=== PATIENT | male | born 1965 | race Caucasian/White ===

== ENCOUNTER 2017-10-24 08:22 | Observation (INO) | payer OTHER ==
[2017-10-24] MEDS ORDERED: Ondansetron INJ* 2 MG/ML VIAL IV ONE (08:45)
[2017-10-24] MEDS ORDERED: NS 0.9% 1000 ML* 3,000 ML IV ONE (08:45)
--- NOTE | 2017-10-24 09:10 | ED ---
Nausea/Vomiting/Diarrhea HPI - HPI Summary HPI Summary: Patient presents to the ED with CC of diarrhea x 2 days. Hx of 2x C. Diff to which he recently was taking vancomycin. Last dose 2 weeks ago. Denies any symptoms since that time until 2 days ago. Associated N/V and feelings of weakness. Denies AUGUST, neck stiffness. He notes to some itching to his chest which he has never had before. Diarrhea is loose, yellow/orange in color, and frequency of 20x per day. He has been eating and drinking, but feels nothing is getting absorbed. Denies chest pain or SOB. Takes medications for CAD, HTN. Family at bedside. BM improves the symptoms. Nothing makes the symptoms worse. He notes to insomnia x 2 nights d/t frequency of episodes. - History of Current Complaint Chief Complaint: EDNauseaVomitDiarrh Stated Complaint: V,N,D Time Seen by Provider: 10/24/17 08:35 Hx Obtained From: Patient Onset/Duration: Sudden Onset Timing: Constant Severity Initially: Severe Severity Currently: Severe Pain Intensity: 5 Pain Scale Used: 0-10 Numeric Character: Cramping Aggravating Factor(s): Nothing Alleviating Factor(s): Bowel Movement Nausea/Vomiting Presence: Nauseated, Vomiting Vomiting Frequency: Every 3-4 hours Nausea/Vomiting Duration: 12-24 hours Diarrhea Presence: Yes Diarrhea Frequency: Every 15-60 minutes Diarrhea Duration: 24-36 hours Diarrhea Characteristics: Watery, Malodorous, Other - yellow and orange in color - Risk Factors Influenza Risk Factors: Negative Surgical Obstruction Risk Factor(s): Negative - Allergies/Home Medications Allergies/Adverse Reactions: Allergies Allergy/AdvReac Type Severity Reaction Status Date / Time Cephalexin [From Keflex] Allergy See Comment Verified 10/24/17 08:30 Penicillins Allergy Unknown Verified 10/24/17 08:30 Reaction Details Home Medications: Home Medications Albuterol inh POWDER (NF) [Proair Respiclick] 90 mcg INH Q6H PRN 10/24/17 [ History Confirmed 10/24/17] Atorvastatin* [Lipitor*] 80 mg PO QPM 10/24/17 [History Confirmed 10/24/17] Bd Ultra-Fine Micro Pen N 32G X 6 mm 10/24/17 [History] Bupropion HCl [Forfivo Xl] 450 mg PO DAILY 10/24/17 [History Confirmed 10/24/17] Colestipol (NF) 1 gm PO BID 10/24/17 [History Confirmed 10/24/17] Gabapentin CAP(*) [Neurontin 300 CAP(*)] 300 mg PO DAILY 10/24/17 [History Confirmed 10/24/17] Glucagon* [Glucagen*] 1 mg INJ SEE INSTRUCTIONS 10/24/17 [History Confirmed ] Lorazepam [Ativan 1 MG TAB] 1 mg PO BID 10/24/17 [History Confirmed 10/24/17] Metformin HCl [Glucophage] 1,000 mg PO BID 10/24/17 [History Confirmed 10/24/17] Metoprolol Succinate [Toprol Xl] 50 mg PO BID 10/24/17 [History Confirmed ] Omeprazole [Prilosec] 20 mg PO DAILY 10/24/17 [History Confirmed 10/24/17] oxyCODONE TAB* [Roxycodone TAB 5 mg*] 5 mg PO Q4H PRN 10/24/17 [History Confirmed 10/24/17] PMH/Surg Hx/FS Hx/Imm Hx Previously Healthy: Yes - Immunization History Hx Pertussis Vaccination: No Immunizations Up to Date: Unable to Obtain/Confirm Infectious Disease History: Yes Infectious Disease History: Denies: Traveled Outside the [place] in Last 30 Days - Social History Occupation: Employed Full-time Lives: With Family Alcohol Use: Occasionally Alcohol Amount: approx 5 drinks a week Hx Substance Use: No Substance Use Type: Reports: None Hx Tobacco Use: No Smoking Status (MU): Never Smoked Tobacco Review of Systems Positive: Fatigue. Negative: Fever, Chills, Skin Diaphoresis Eyes: Negative Cardiovascular: Negative Respiratory: Negative Positive: Abdominal Pain, Vomiting, Diarrhea, Nausea Genitourinary: Negative Positive: no symptoms reported, see HPI Musculoskeletal: Negative Skin: Negative Neurological: Negative All Other Systems Reviewed And Are Negative: Yes Physical Exam Triage Information Reviewed: Yes Vital Signs On Initial Exam: Initial Vitals Temp Pulse Resp BP Pulse Ox 98.2 F 90 13 136/85 92 10/24/17 08:27 10/24/17 08:27 10/24/17 08:27 10/24/17 08:27 10/24/17 08:27 Vital Signs Reviewed: Yes Appearance: Positive: Ill-Appearing Skin: Positive: Dry, Pale Head/Face: Positive: Normal Head/Face Inspection Eyes: Positive: EOMI, KASEY, Conjunctiva Clear Neck: Positive: Supple, No Lymphadenopathy Respiratory/Lung Sounds: Positive: Clear to Auscultation, Breath Sounds Present Cardiovascular: Positive: RRR, Pulses are Symmetrical in both Upper and Lower Extremities Abdomen Description: Positive: Nontender, Soft Bowel Sounds: Positive: Hyperactive Musculoskeletal: Positive: Normal, Strength/ROM Intact Neurological: Positive: Speech Normal Psychiatric: Positive: Normal, Affect/Mood Appropriate - [place] Coma Scale Coma Scale Total: 15 Diagnostics - Vital Signs Vital Signs Temp Pulse Resp BP Pulse Ox 10/24/17 08:27 98.2 F 90 13 136/85 92 - Laboratory Result Diagrams: 10/24/17 09:10 10/24/17 09:10 Lab Statement: Any lab studies that have been ordered have been reviewed, and results considered in the medical decision making process. Naus/Vom/Diarrhea Course/Dx - Course Course Of Treatment: During the course of treatment, patient was given fluids and zofran. C. diff and stool culture obtained and sent. Improved following IV fluids and zofran. Continues to appear pale and feels weak on physical exam. H and H low at 9 and 26. Platelet 143.. C. Diff positive. Hospitalist called who agrees to admit patient. Requested records from [facility] in [place], [place] and [facility] in [place], [place]. Awaiting records. Patient is admitted. He is OK with plan. - Differential Dx/Diagnosis Provider Diagnoses: C. Diff Is Visit Related: No - Physician Notification/Consults Time Discussed With Above Provider: 10:30 Instructed by Provider To: Admit As Inpatient Discharge - Discharge Plan Condition: Stable Disposition: ADMITTED TO [facility]
[2017-10-24 09:26] LABS: Hematocrit 26 % (42-52); Mean Corpuscular HGB Conc 34 g/dl (31-36); Mean Corpuscular Hemoglobin 31 pg (27-31); Mean Corpuscular Volume 90 fL (80-94); Mean Platelet Volume 8 um3 (7.4-10.4); Red Blood Count 2.94 10^6/ul (4.0-5.4); Red Cell Distribution Width 14 % (10.5-15); White Blood Count 10.2 10^3/ul (3.5-10.8)
[2017-10-24 09:40] LABS: Albumin 3.1 g/dL (3.2-5.2); C Reactive Protein 10.89 mg/L (< 5.00); Calcium 8.9 mg/dL (8.6-10.3); EGFR African American 54.4 (>60); EGFR Non-African American 42.3 (>60); Globulin 3.4 g/dL (2-4); Magnesium 1.6 mg/dL (1.9-2.7); Potassium 4.5 mmol/L (3.5-5.0); Total Bilirubin 0.6 mg/dL (0.2-1.0); Total Protein 6.5 g/dL (6.4-8.9)
[2017-10-24] MEDS ORDERED: Albuterol HFA INHALER* 8 gm MDI INH PRN (12:26)
[2017-10-24] MEDS ORDERED: Dextrose 50% Syringe 50 ML* 25 GM/50 ML SYRINGE IV PUSH PRN (12:28)
[2017-10-24] MEDS ORDERED: Ondansetron INJ* 2 MG/ML VIAL IV PRN (12:32)
[2017-10-24] MEDS ORDERED: Acetaminophen TAB* 325 MG PO PRN (12:32)
[2017-10-24] MEDS ORDERED: NS 0.9% 1000 ML* 1,000 ML IV SCH (12:45)
[2017-10-24] MEDS: Vancomycin CAP* 125 MG CAP PO SCH ×3 (15:36→21:20)
[2017-10-24] MEDS: Heparin VIAL(*) 5000 UNITS/ML VIAL (FIVE THOUSAND) SUBCUT SCH ×2 (15:50→22:21)
[2017-10-24] MEDS: oxyCODONE TAB* 5 MG TAB PO PRN ×2 (16:43→21:00)
[2017-10-24] MEDS: Insulin REGULAR(*) 1 UNITS UNIT SUBCUT SCH (17:36)
[2017-10-24] MEDS: Insulin LISPRO* 1 UNITS UNIT SUBCUT SCH (17:37)
[2017-10-24] MEDS ORDERED: Atorvastatin* 80 MG TAB PO SCH (18:00)
[2017-10-24 18:44] LABS: Urine Bacteria Absent (Absent); Urine Bilirubin Negative (Negative); Urine Glucose Negative (Negative); Urine Nitrite Negative (Negative)
--- NOTE | 2017-10-24 20:27 | HP ---
HOSPITAL MEDICINE HISTORY AND PHYSICAL: DATE OF ADMISSION: 10/24/17 PRIMARY CARE PHYSICIAN: None. ATTENDING PHYSICIAN: Galilea Freeman MD * (dictation provided by Rashmi Miller NP ) CHIEF COMPLAINT: Nausea, vomiting, diarrhea. HISTORY OF PRESENT ILLNESS: Mr. English is a 52-year-old male who is visiting out of town from the [place] area and presents today to the hospital with nausea, vomiting, diarrhea. Mr. English has a history of insulin dependent diabetes. He is wheelchair bound secondary to bilateral Charcot foot. He has diastolic congestive heart failure and he has had 2 episodes of Clostridium difficile colitis requiring hospitalization recently with last episode being about 3-4 weeks ago. He confirms being treated with flagyl and vancomycin during his last hospitalization. He has been visiting with family in [place] and was feeling relatively well the past few days. He notes that at night he has felt like he was coming down with a cold over the past couple of days, but then he would feel fine during the day. Last night at about 10:30 or 11 o'clock , he had sudden onset of nausea, vomiting, diarrhea. He was up throughout the night with his family who were helping him to the bathroom. He was up at least 7 to 10 times during the night. He had profuse liquid diarrhea, with nausea and vomiting and lower abdominal pain. There was no report of blood in the stool. He has had no fever. This episode is very similar to the previous episodes of C. Diff. In the emergency room, Mr. English had labs which showed no leukocytosis. He had anemia, which is slightly worse than his baseline, which was 10 and is now 9. He has acute kidney injury with BUN of 43 and creatinine of 1.72. This is a little bit up from his baseline with the creatinine normally running about 1.2 to 1.5. He has an essentially normal CRP at 10.89. His vitals are stable. PAST MEDICAL HISTORY: 1. C. Difficile x2, last episode about 3 to 4 weeks ago. 2. Insulin dependent diabetes. 3. Polyneuropathy. 4. Charcot foot, left and right. 5. Diastolic congestive heart failure, on chronic torsemide therapy. 6. Depression. 7. Anxiety. 8. Obstructive sleep apnea with CPAP. MEDICATIONS: 1. Atorvastatin 80 mg p.o. daily or q.p.m. 2. Bupropion XL 450 mg p.o. daily. 3. Colestipol. 4. Gabapentin 300 mg every day. 5. Humulin R 500 units per 1 mL, the patient has been currently taking 40 units in the morning and 40 units in the afternoon. This is a decrease from prior to this visit to [place], where he was taking 40 a.m., 40 at lunch, and 50 p.m. With this, his blood sugar has been running about 220. 6. Lorazepam 1 mg twice daily. 7. Metformin 1000 mg p.o. b.i.d. 8. Metoprolol 50 mg b.i.d. 9. Omeprazole 20 mg p.o. daily. 10. Oxycodone 5 mg q.4 hours p.r.n. 11. Acetaminophen as needed. 12. Torsemide 40 mg daily. 13. Trulicity subcutaneously weekly. 14. Tylenol p.r.n. 15. Aspirin 81 mg p.o. daily. 16. Sarna Lotion as needed for itching. 17. Senna 1 tab by mouth as needed for constipation. 18. Vitamin D3, 1 tab by mouth daily. 19. Enemas as needed p.r.n. ALLERGIES: To CEPHALEXIN and PENICILLIN. FAMILY HISTORY: The patient reports that multiple members of his family have diabetes. SOCIAL HISTORY: The patient has never been a smoker. He drinks about 4 alcoholic beverages per week. He denies any drug use. He states his brother, Dontrell, will be the healthcare proxy. REVIEW OF SYSTEMS: Constitutional: No fevers, no chills, no intended weight loss. Cardiac: No chest pain. Positive for lower extremity edema. Respiratory : No cough, no hemoptysis. No shortness of breath. GI: Positive nausea, vomiting, diarrhea, or abdominal pain. : No gross hematuria or dysuria. Neuro: No focal weakness or sensory loss. Eyes: No visual complaints. ENT: No dysphagia. Musculoskeletal: No arthralgias or myalgias. Skin: Positive for an abrasion on his left hip and some chronic dried ulcerations to his lower extremities. Psych: Positive for depression and anxiety. PHYSICAL EXAMINATION GENERAL: Mr. English is sitting up in the bed, he is in no acute distress. VITAL SIGNS: Temperature 98.2, pulse rate 93, respiratory rate 26, O2 saturation 98% on room air, blood pressure 142/103. LUNGS: Clear to auscultation bilaterally with no accessory muscle use and good aeration. HEART: S1, S2. No murmurs, rubs, or gallop and regular. ABDOMEN: Soft and nontender with bowel sounds positive x4. It is nontender. EXTREMITIES: No cyanosis. Positive for chronic 1+ lower extremity edema. NEUROLOGIC: He is alert. He is oriented x3. He moves all extremities equally. There is no facial asymmetry or focal weakness. Extraocular movements are intact. SKIN: The patient has multiple dried scabbed areas to bilateral lower extremities. There is chronic venous stasis changes. He has superficial abrasions to his left hip and he has what appears to be a chronic healing pressure ulcer to his left buttock. LABORATORY DATA: Sodium 135, potassium 4.5, chloride 102, serum bicarbonate 26 , BUN 43, creatinine 1.72, glucose 230, lactic acid 1.5, magnesium 1.6. CRP 10.89. WBC 10.2, hemoglobin 9.0, hematocrit 26, platelet count 143,000. ASSESSMENT/PLAN: Mr. English is a 52-year-old male visiting from out of town with a past medical history of Clostridium difficile x2, insulin dependent diabetes, he is wheelchair bound due to neuropathy and Charcot's foot on left and right, as well as diastolic congestive heart failure, who presents today to the hospital with concern for nausea, vomiting, diarrhea, which started last evening. Our plans are for observation in the hospital for the followin. Nausea, vomiting, diarrhea. The patient's Clostridium difficile is positive. Given the severity of the symptoms and the 2 recent Clostridium difficile infections, I am concerned that this is an active Clostridium difficile infection. Plan to treat with pulsed vancomycin per guidelines. The patient will have a consultation with Dr. Arnold from Infectious Diseases tomorrow if he is available. At this point, he does not appear to have severe disease. He is pain free at the moment. He has no leukocytosis or fever. He meets criteria for sepsis with a slightly elevated respiratory rate and heart rate. He has received IV fluids in the emergency room. His lactic acid is 1.5. Blood cultures have been received. 2. Acute kidney injury. The patient's BUN and creatinine are elevated from baseline. His creatinine per records runs about 1.2 to 1.5 normally. I think this is secondary to dehydration in the setting of chronic kidney disease and torsemide use. Plan to hydrate with 75 mL of fluid overnight per hour and then we will recheck his labs tomorrow. Plan to hold torsemide. 3. Anemia. The patient's hemoglobin is 9. His normal hemoglobin over the past year or so is running about 10 to 11. The stool guaiac was negative. I have no evidence of overt bleeding. I believe this is all be secondary to his chronic kidney disease. Plan to recheck his labs in the a.m. 4. Type 2 diabetes. Plan to continue reduced dose home insulin with regular insulin at 20 units subcutaneously b.i.d. He will also have lispro sliding scale. 5. DVT prophylaxis with heparin subcu. 6. Code status is full code. TIME SPENT: Approximately 60 minutes were spent on the admission of this patient and more than half of the time was spent with the patient at the bedside reviewing the events leading up to this hospitalization, performing the physical examination and reviewing my plan of care. RASHMI MILLER NP [id number]/[facility] #: [id number] HALEY
[2017-10-24] MEDS: LORazepam TAB(*) 1 MG PO SCH (20:59)
[2017-10-24] MEDS: Lactobacillus Acidophilu (GG)* 1 CAP CAP PO SCH (21:00)
[2017-10-24] MEDS ORDERED: Metoprolol Succinate XL TAB* 50 MG PO SCH (21:00)
[2017-10-25] MEDS: oxyCODONE TAB* 5 MG TAB PO PRN ×3 (02:17→12:14)
[2017-10-25] MEDS: Heparin VIAL(*) 5000 UNITS/ML VIAL (FIVE THOUSAND) SUBCUT SCH ×2 (06:31→13:11)
[2017-10-25 07:29] LABS: Hematocrit 25 % (42-52); Hemoglobin 8.5 g/dl (14.0-18.0); Mean Corpuscular HGB Conc 34 g/dl (31-36); Mean Corpuscular Hemoglobin 31 pg (27-31); Mean Corpuscular Volume 90 fL (80-94); Mean Platelet Volume 8 um3 (7.4-10.4); Red Blood Count 2.76 10^6/ul (4.0-5.4); Red Cell Distribution Width 14 % (10.5-15); White Blood Count 5.7 10^3/ul (3.5-10.8)
[2017-10-25 07:44] LABS: BUN/Creatinine Ratio 24.6 (8-20); Calcium 8.6 mg/dL (8.6-10.3); EGFR African American 75.1 (>60); EGFR Non-African American 58.4 (>60); Potassium 3.8 mmol/L (3.5-5.0)
[2017-10-25 08:21] VITALS: BP 132/66
[2017-10-25] MEDS: Lactobacillus Acidophilu (GG)* 1 CAP CAP PO SCH (08:22)
[2017-10-25] MEDS: Vancomycin CAP* 125 MG CAP PO SCH ×2 (08:23→13:10)
[2017-10-25] MEDS: LORazepam TAB(*) 1 MG PO SCH (08:23)
[2017-10-25] MEDS: Insulin LISPRO* 1 UNITS UNIT SUBCUT SCH ×2 (08:24→12:31)
[2017-10-25] MEDS: Insulin REGULAR(*) 1 UNITS UNIT SUBCUT SCH (08:24)
[2017-10-25] MEDS ORDERED: Metoprolol Succinate XL TAB* 50 MG PO SCH (09:00)
[2017-10-25] MEDS ORDERED: Omeprazole CAP* 20 MG PO SCH (09:00)
[2017-10-25] MEDS ORDERED: BuPROPion XL* 150 MG TAB.XL PO SCH (09:00)
[2017-10-25] MEDS ORDERED: Gabapentin CAP(*) 300 MG PO SCH (09:00)
--- NOTE | 2017-10-25 11:17 | DCNOTE ---
Subjective Date of Service: 10/25/17 Interval History: Patient seen and examined at bedside. Patient reports that diarrhea and abdominal pain has resolved. Tolerating PO with out difficulty. Family History: Unchanged from Admission Social History: Unchanged from Admission Past Medical History: Unchanged from Admission Objective Active Medications: Acetaminophen (Tylenol Tab*) 650 mg PO Q6H PRN Albuterol (Ventolin Hfa Inhaler*) 1 puff INH Q6H PRN Atorvastatin Calcium (Lipitor*) 80 mg PO QPM SYLVIE Bupropion HCl (Wellbutrin Xl *) 450 mg PO DAILY [facility] Dextrose (D50w Syringe 50 Ml*) 12.5 gm IV PUSH .FOR FS < 60 - SS PRN Gabapentin (Neurontin Cap(*)) 300 mg PO DAILY [facility] Heparin Sodium (Porcine) (Heparin Vial(*)) 5,000 units SUBCUT Q8HR [facility] Sodium Chloride (Ns 0.9% 1000 Ml*) 1,000 mls @ 75 mls/hr IV PER RATE [facility] Insulin Human Lispro (Humalog*) 0 units SUBCUT AC [facility] Insulin Human Regular (Insulin Regular(*)) 20 units SUBCUT 0800,1700 SYLVIE Lactobacillus Rhamnosus (Culturelle*) 1 cap PO BID SYLVIE Lorazepam (Ativan Tab(*)) 1 mg PO BID SYLVIE Metoprolol Succinate (Toprol Xl Tab*) 50 mg PO DAILY SYLVIE Ondansetron HCl (Zofran Inj*) 4 mg IV Q6H PRN Oxycodone HCl (Roxycodone Tab*) 5 mg PO Q4H PRN Vancomycin HCl (Vancomycin Cap*) 125 mg PO QID [facility] Vital Signs Temp Pulse Resp BP Pulse Ox 97.8 F 97 18 132/66 98 10/25/17 08:20 10/25/17 08:20 10/25/17 08:32 10/25/17 08:20 10/25/17 08:20 Oxygen Devices in Use Now: None Appearance: sitting up in bed, NAD Eyes: No Scleral Icterus Ears/Nose/Mouth/Throat: NL Teeth, Lips, Gums Neck: NL Appearance and Movements; NL JVP, Trachea Midline Respiratory: Symmetrical Chest Expansion and Respiratory Effort, Clear to Auscultation Cardiovascular: NL Sounds; No Murmurs; No JVD, RRR Abdominal: NL Sounds; No Tenderness; No Distention Extremities: No Edema Skin: No Rash or Ulcers Neurological: Alert and Oriented x 3, NL Muscle Strength and Tone Lines/Tubes/Other Access: Clean, Dry and Intact Peripheral IV Nutrition: Taking PO's Result Diagrams: 10/25/17 07:13 10/25/17 07:13 Microbiology and Other Data: . Assess/Plan/Problems-Billing Pt is a 52 y/o M w/ PMH significant for recurrent cdiff, insulin dependent diabetes, wheelchair bound secondary to neuropathy and charcot's foot who is visiting from out of town and presented with diarrhea, nausea, and vomiting found to have recurrent Cdiff. - Patient Problems (1) Clostridium difficile colitis (2) Diabetes (3) CKD (chronic kidney disease) stage 2, GFR 60-89 ml/min (4) Anemia (5) DVT prophylaxis (6) Full code status Status and Disposition: OBV for Cdiff. Plan to discharge home once vancomycin prescription received from [facility] pharmacy. See dictated discharge summary for detail.
--- NOTE | 2017-10-25 21:13 | CONS ---
CONSULTATION REPORT: DATE OF CONSULT: 10/25/17 REQUESTING PROVIDER: Rashmi Miller NP CONSULTING SERVICE: Infectious Disease. REASON FOR CONSULT: Recurrent C. difficile diarrhea. IMPRESSION: 1. Clostridium difficile associated diarrhea, third episode, last treatment with vancomycin for 2 weeks. His diarrhea is improving. 2. Thrombocytopenia due to sepsis, due to Clostridium difficile diarrhea, which was present on admission. 3. Morbid obesity. 4. Diabetes with neuropathy. RECOMMENDATION: Agree with vancomycin 125 mg 4 times a day for 14 days, then 3 times a day for 10 days, then 2 times a day for 10 days, then 1 time a day for 10 days, then every other day for 10 doses, and every third day for 10 doses. He and I discussed that about 95% of the people with recurrent C. diff will be cured by this regimen and at that point, if he has recurrence after finishing, his main option would be a fecal microbiota transplant. He will talk to his infectious disease doctor in [place] about followup for C. diff and consideration of transplant if he is not cured by this regimen. We will stop his omeprazole which may increase the risk of recurrence of C. difficile diarrhea. HISTORY OF PRESENT ILLNESS: This is a 52-year-old man with diabetes and diarrhea with recent C. diff. In July, he had oral antibiotics for diabetic foot infection and a couple of weeks later, had explosive multiple stools a day, liquid stools, admitted to hospital near [place], treated for C. difficile diarrhea after PCR came back positive. He had a course of antibiotics a few days later. After stopping, he had recurrence of his symptoms , treated with Flagyl and vancomycin, he thinks. He had about 2 weeks of that therapy. Near the end, his stools were getting back to normal and then the course of treatment stopped. About 2 weeks later, which was Wednesday, he had return of explosives multiple stools a day with nausea, vomiting, mild abdominal pain, chills, and sweats with fever. Because of those symptoms, he came to the emergency room yesterday, 10/24/17. He had white count of 10,000 and C. diff PCR was positive. He was started on oral vancomycin. Blood cultures were sent, they are negative. At this point, his stool cultures are also pending. He had abdominal pain which today is much improved. He has vague occasional mild discomfort. He is passing gas. His last bowel movement overnight was soft. His chills, sweats, and fevers resolved. Today, he is eating and drinking. PAST MEDICAL HISTORY: 1. Diabetes with neuropathy. 2. Bilateral Charcot joints in the ankle and midfoot. 3. History of C. difficile diarrhea. 4. Diastolic congestive heart failure. 5. Depression. 6. Anxiety. 7. Obstructive sleep apnea, on CPAP. 8. Obesity. MEDICATIONS: 1. Tylenol. 2. Albuterol. 3. Lipitor. 4. Bupropion. 5. Heparin subcutaneous injection. 6. Gabapentin. 7. Insulin regular subcutaneous injection. 8. Lactobacillus. 9. Omeprazole. 10. Oxycodone. 11. Metoprolol. ALLERGIES: CEPHALEXIN and PENICILLIN. FAMILY HISTORY: No recurrent infections. SOCIAL HISTORY: He lives in [place]. He is here visiting relatives. No other travel. REVIEW OF SYSTEMS: A 14-point review of systems was negative except as noted above. PHYSICAL EXAM: Vital Signs: Temperature 36.6, heart rate 97, respiratory 16, blood pressure 130/60, O2 sat 98% on room air. General: He is awake, not in distress. HEENT: There is no conjunctival hemorrhage. Oropharynx is without lesions. Neck: Supple. Lymph Nodes: No inguinal, axillary, or epitrochlear lymphadenopathy. Heart: Regular rate and rhythm without murmurs, rubs, or gallops. Lungs: Clear to auscultation bilaterally. Abdomen: Soft, nontender , nondistended. Bowel sounds present. Skin: There are no rashes or splinter hemorrhages. Musculoskeletal: There is diffuse bilateral edema and venous stasis changes of his feet when examined. LABORATORY DATA: White blood cell count 5, hemoglobin 8, platelets 120. Creatinine 1.3. HIV antibody negative. Urinalysis 2+ blood. Please see impressions and recommendations as outlined above, which I have discussed with Serena Luu NP. Thanks for asking me to see Mr. English in consultation. [id number]/[facility] #: [id number] [place]
--- NOTE | 2017-10-26 04:52 | DS ---
DISCHARGE SUMMARY: DATE OF ADMISSION: 10/24/17 DATE OF DISCHARGE: 10/25/17 PRIMARY CARE PHYSICIAN: Out of the area. ATTENDING PHYSICIAN: Dr. Mehnaz Castro * (report dictated by Marah Luu NP). PRIMARY DIAGNOSIS: Clostridium difficile colitis. SECONDARY DIAGNOSES: 1. Insulin-dependent diabetes. 2. Polyneuropathy, Charcot foot. 3. Diastolic congestive heart failure. 4. Depression. 5. Anxiety. 6. Obstructive sleep apnea. STUDIES WHILE IN THE HOSPITAL: No studies while in the hospital. MEDICATIONS AT THE TIME OF DISCHARGE: New medication: 1. Vancomycin 125 mg oral tablets to take as follows: 4 times daily for 14 days, 3 times daily for 10 days, 2 times daily for 10 days, 1 time daily for 10 days, every other day x10 doses, and then every 3 days for 10 doses. New medication: 1. Lactobacillus 1 capsule oral twice daily. The following medications are all medications the patient came in on: 1. Insulin U-500 40 units 8 a.m. and 1700. 2. Oxycodone 5 mg oral 4 hours as needed. 3. Toprol-XL 50 mg oral twice daily. 4. Glucophage 2000 mg oral twice daily. 5. Ativan 1 mg oral twice daily. 6. Glucagon 1 mg injection per instructions. 7. Neurontin 300 mg oral daily. 8. Colestipol 1 g oral twice daily. 9. Bupropion 450 mg oral daily. 10. Lipitor 80 mg oral in the evening. 11. ProAir RespiClick 90 mcg inhaled every 6 hours as needed. 12. Vitamin D3 1000 units oral daily. 13. Aspirin 81 mg oral daily. 14. Senna 8.6 mg oral every day as needed. 15. Tylenol 650 mg oral every 6 hours as needed. 16. Trulicity 0.5 mL subcu weekly. 17. Torsemide 40 mg oral daily. HISTORY OF PRESENT ILLNESS AND HOSPITAL COURSE: Mr. English is a 62-year-old male visiting [place] from out of town, who presented to the emergency room on with complaint of nausea, vomiting, and diarrhea. The patient has a history of diabetes and recurrent C. diff with the most recent episode approximately 3 to 4 weeks ago. The patient presented to the emergency room with the complaint of abdominal pain as well as diarrhea. In the emergency room , the diarrhea was sent and it was positive for C. difficile. The patient was placed on oral vancomycin and the patient was admitted to the medical floor and placed on fluids. The patient was seen in consultation the next morning by Dr. Fam Arnold from Infectious Disease. Dr. Arnold recommended 6 weeks of vancomycin with the taper that is outlined above. Overnight, the patient's abdominal pain and nausea improved and the patient was able to tolerate a regular diet without difficulty. At this point, he was stable from a colitis standpoint to be discharged. The patient's BUN and creatinine were slightly elevated upon admission; with IV fluids, creatinine stabilized and came down to 1.3. The patient has chronic anemia likely from chronic kidney disease. Hemoglobin remained stable at 8.5. The patient's stool was negative for blood. Because of the patient's acute kidney injury, torsemide was held and will be restarted upon discharge. For the patient's type 2 diabetes, home insulin was reduced to 20 units subcu twice daily, sugars were relatively controlled upon discharge. The patient will resume his U-500 40 units twice daily. PHYSICAL EXAMINATION: On 10/25/17, vitals were as follows: Temperature 97.8, heart rate 97, respiratory rate is 16, blood pressure 132/66, oxygen saturation 98%. At this point, the patient is stable for discharge. DISCHARGE PLAN: The patient discharged on a consistent carb diet. The patient has been instructed to follow up with primary care provider in the [facility] within 5 to 7 days. The patient has been instructed to return to the hospital if he experiences multiple episodes of diarrhea with nausea, vomiting, and inability to tolerate oral intake. I reviewed these instructions with the patient and he is agreeable with his discharge today. This is a summarized report of a complex medical history and hospital stay. For more details, please see the entire medical record. TIME SPENT: Time for this discharge was 50 minutes, and 25 minutes was spent with the patient discussing medications, discharge, and followup instructions. MARAH LUU NP [id number]/[facility] #: [id number] [facility]
== END 2017-10-25 14:20 | disposition home or self-care (01) ==
LOC: ED 08:22 → MED 10:15
PROVIDERS: ADMIT Internal Medicine; ATTEND Hospitalist
DX: A04.72 Enterocolitis due to Clostridium difficile, not specified as recurrent (principal); E11.621 Type 2 diabetes mellitus with foot ulcer; L97.509 Non-pressure chronic ulcer of other part of unspecified foot with unspecified severity; Z79.84 Long term (current) use of oral hypoglycemic drugs; Z79.4 Long term (current) use of insulin; E11.42 Type 2 diabetes mellitus with diabetic polyneuropathy; E11.610 Type 2 diabetes mellitus with diabetic neuropathic arthropathy; I50.30 Unspecified diastolic (congestive) heart failure; F41.8 Other specified anxiety disorders; G47.33 Obstructive sleep apnea (adult) (pediatric); Z79.899 Other long term (current) drug therapy; D69.59 Other secondary thrombocytopenia; A41.9 Sepsis, unspecified organism; E66.9 Obesity, unspecified; D64.9 Anemia, unspecified; I87.8 Other specified disorders of veins; I25.10 Atherosclerotic heart disease of native coronary artery without angina pectoris; I10 Essential (primary) hypertension
CPT/HCPCS: 36415; 80048; 80053; 81003; 81015; 82272; 83605; 83630; 83690; 83735; 85025; 86140; 86703; 87040; 87045; 87046; 87077; 87493; 87899; 93005; 96361; 96372; 96374; 99284; A9270-GY; G0378; J1644; J2405